=== PATIENT | male | born 1950 | race Caucasian/White ===

== ENCOUNTER → 2024-01-30 14:30 | Outpatient (REF) | payer MEDICARE, OTHER, SELFPAY | LOC: HWRAD 14:30 | PROVIDERS: ATTENDING PHYSICIAN Family Medicine | DX: M25.572 Pain in left ankle and joints of left foot (principal); G89.29 Other chronic pain | CPT/HCPCS: 71046; 73610 ==

== ENCOUNTER → 2025-03-03 10:03 | Outpatient (REF) | payer MEDICARE, OTHER, SELFPAY | LOC: PAVMRI 10:03 | PROVIDERS: ATTENDING PHYSICIAN Family Medicine | DX: M25.572 Pain in left ankle and joints of left foot (principal) | CPT/HCPCS: 73721 ==

== ENCOUNTER 2025-04-17 06:24 | Day surgery (SDC) | payer MEDICARE, OTHER, SELFPAY | END 2025-04-17 12:02 | disposition home or self-care (01) | LOC: GI 06:24 | PROVIDERS: ATTENDING PHYSICIAN Internal Medicine Gastroenterology; FAMILY PHYSICIAN Family Medicine | DX: Z12.11 Encounter for screening for malignant neoplasm of colon (principal); K64.8 Other hemorrhoids; K57.30 Diverticulosis of large intestine without perforation or abscess without bleeding; R12 Heartburn; K31.89 Other diseases of stomach and duodenum; Z86.0100 Personal history of colon polyps, unspecified | CPT/HCPCS: 43239; G0105; 88305; 88342 ==

== ENCOUNTER → 2025-05-02 11:56 | Outpatient (REF) | payer MEDICARE, OTHER, SELFPAY | LOC: RAD 11:56 | PROVIDERS: ATTENDING PHYSICIAN Internal Medicine Gastroenterology; FAMILY PHYSICIAN Family Medicine | DX: K59.00 Constipation, unspecified (principal); R10.13 Epigastric pain | CPT/HCPCS: 74177; Q9967 ==

== ENCOUNTER → 2025-05-12 12:04 | Outpatient (REF) | payer MEDICARE, OTHER, SELFPAY | LOC: HWRAD 12:04 | PROVIDERS: ATTENDING PHYSICIAN Family Medicine | DX: M54.9 Dorsalgia, unspecified (principal) | CPT/HCPCS: 72110 ==

== ENCOUNTER 2025-05-20 06:11 | Day surgery (SDC) | payer MEDICARE, OTHER, SELFPAY ==
[2025-05-20 13:15] VITALS: BP 161/92; BMI 29.8
[2025-05-20 13:40] VITALS: BMI 29.8
[2025-05-20 16:09] VITALS: BP 150/91
[2025-05-20 16:15] VITALS: BP 155/89
[2025-05-20 16:30] VITALS: BP 160/95
[2025-05-20 16:45] VITALS: BP 176/90
== END 2025-05-20 16:58 | disposition home or self-care (01) ==
LOC: SDS 06:11
PROVIDERS: ATTENDING PHYSICIAN Internal Medicine Gastroenterology
DX: R93.3 Abnormal findings on diagnostic imaging of other parts of digestive tract (principal); K86.89 Other specified diseases of pancreas; R59.0 Localized enlarged lymph nodes; C25.0 Malignant neoplasm of head of pancreas
CPT/HCPCS: 43238; 88173; 88305

== ENCOUNTER 2025-07-02 11:47 | Emergency (ER) | payer MEDICARE, OTHER, SELFPAY ==
[2025-07-02 12:05] VITALS: BP 139/90
[2025-07-02 15:53] VITALS: BP 134/77
[2025-07-02 16:21] VITALS: BMI 26.3
[2025-07-02] MEDS: NSS 1000 IV (16:52)
[2025-07-02] MEDS: TORADOL 15 MG IV (16:52)
[2025-07-02 17:22] LABS: Hematocrit 34.8 % (39.0-52.0); Hemoglobin 12.4 g/dL (13.0-18.0); Mean Corp Hgb Conc. 35.6 g/dL (33.0-37.0); Mean Corpuscular Volume 81.3 fL (80.0-94.0); Platelet Count 146 10^3/uL (130-400); Red Cell Dist. Width 11.8 % (11.5-14.5)
[2025-07-02 17:31] LABS: ALT (SGPT) 17 U/L (0-50); AST (SGOT) 18 U/L (17-59); Albumin 3.6 g/dl (3.5-5.0); Alkaline Phosphatase 101 U/L (38-126); Blood Urea Nitrogen 16 mg/dl (9-20); Estimated Creatinine Clearance 85 ml/min; Glucose 90 mg/dl (70-99); Potassium 3.9 mmol/L (3.5-5.1); Total Protein 6.2 g/dl (6.3-8.2); eGFR > 60.00
[2025-07-02 17:38] LABS: Nucleated Red Blood Cells % 0 % (-)
[2025-07-02 17:51] LABS: Calcium 8.6 mg/dl (8.4-10.2); Carbon Dioxide 19 mmol/L (22-30); Chloride 100 mmol/L (98-107); Sodium 130 mmol/L (135-145)
[2025-07-02 19:15] VITALS: BP 124/71
--- NOTE | 2025-07-02 19:21 | ED.GENMED ---
History of Present Illness
General
Chief Complaint: Abdominal Pain
Time Seen by Provider: 07/02/25 16:01
History of Present Illness
History of Present Illness:
74-year-old male presents to the emergency department for evaluation of severe abdominal and low back pain. The symptoms have been ongoing for several months and have been felt to be related to his known pancreatic cancer for which he recently
started chemotherapy. Has had difficulty tolerating p.o. food and fluids since starting chemo. Currently is on twice daily extended release morphine as well as breakthrough oxycodone but states every time he takes the oxycodone he has severe
stomach distress and nausea. Denies any vomiting or diarrhea. 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
Past History
Past History
ED Past Medical History: None
ED Past Surgical History: None
Review of Systems
Review of Systems
Allergies reviewed?: Yes
All Other Systems: ROS reviewed and negative except as documented in HPI and ROS
Phy Exam
Physical Exam
Physical Exam:
GEN: Well appearing, NAD, WDWN
HEENT: Oral mucosa moist, no scleral icterus
Cardiac: Regular rate
Lung: No respiratory distress, no tachypnea
Abdomen: Soft, grossly nontender to palpation
MSK: No gross deformity or injuries
Skin: Good color, no pallor or jaundice, no rashes
Neuro: AO x3, moves all extremities freely, bilateral lower extremity strength 5 out of 5 in all guerra
Psych: Calm, cooperative
Course
Orders/Labs/Results
Orders:
Orders
07/02/25 16:19
0.9% Sodium Chloride 1000 ml [Nss] 1,000 ml IV BOLUS
Ketorolac [Toradol] 15 mg IV NOW STA
07/02/25 17:06
Complete Blood Count/With Diff Urgent
Comprehensive Metabolic Panel Urgent
07/02/25 18:01
CT Abd/Pel (IV only)-DH only Urgent
Comment:
Reason For Exam: back/abd pain, known pancreatic CA
Abnormal Lab Results
07/02/25
17:06
WBC 21.8 H 10^3/uL
(4.8-10.8)
RBC 4.28 L 10^6/uL
(4.70-6.10)
Hgb 12.4 L g/dL
(13.0-18.0)
Hct 34.8 L %
(39.0-52.0)
MPV 11.5 H fL
(7.4-10.4)
Abs Immat Gran (auto) 0.3 H 10^3/uL
(0-0.05)
Absolute Neuts (auto) 17.8 H 10^3/uL
(1.4-6.5)
Absolute Monos (auto) 2.2 H 10^3/uL
(0.1-0.6)
Immature Gran % 1.2 H %
(0-0.5)
Neutrophils % 81.4 H %
(42.2-75.2)
Lymphocytes % 5.5 L %
(20.5-51.1)
Monocytes % 9.9 H %
(1.7-9.3)
Sodium 130 L mmol/L
(135-145)
Carbon Dioxide 19 L mmol/L
(22-30)
Total Protein 6.2 L g/dl
(6.3-8.2)
07/02/25 17:06
07/02/25 17:06
Vital Signs
Initial and Last Documented VS:
Initial Vital Signs
Temp Pulse Resp BP Pulse Ox
98.4 F 74 16 139/90 99
07/02/25 12:05 07/02/25 12:05 07/02/25 12:05 07/02/25 12:05 07/02/25 12:05
Last Documented Vital Signs
Temp Pulse Resp BP Pulse Ox
98.1 F 65 18 124/71 98
07/02/25 15:53 07/02/25 19:15 07/02/25 16:00 07/02/25 19:15 07/02/25 19:21
MDM/Problems Addressed
MDM/Problems Addressed:
Labs and imaging are reassuring. No progression of disease from comparison to prior images. 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
spinal issue however he has no neurologic findings concerning for spinal metastasis or neurologic involvement. Recommend he discuss an outpatient MRI for completeness given the degree of his pain. In the interim we will recommend NSAIDs as these
do not provide dramatic improvement in his symptoms as opposed to continued opioids, only to use long-acting opioids for daily control
*Pulse Oximetry
SaO2: 98
Oxygen Mode of Delivery: Room air
Patient hypoxic: no
*Critical Care Note
Total Time (30-74mins, 75-104mins- exclusive of procedures): Not Applicable
ED Attending Note
-
Portions of this chart may have been created with voice recognition software.� Occasional wrong word or��sound alike� substitutions may have occurred due to the inherent limitations of voice recognition software.
Discharge Plan
Departure
Patient Disposition: Home (Routine Discharge)
Date of Disposition: 07/02/25
Time of Disposition: 19:21
Patient with high blood pressure during this ER visit?: No
Discharge Problem:
Cancer related pain
Instructions: Chronic pain
Prescriptions:
New
celecoxib 200 mg capsule
200 mg PO BID Qty: 30 0RF
No Action
omeprazole 40 mg Capsule,Delayed Release(Dr/Ec)
40 mg PO DAILY
olmesartan 20 mg Tablet
20 mg PO QPM
rosuvastatin 10 mg Tablet
10 mg PO QPM
aspirin
81 mg PO QPM
simethicone
2 tab PO TID
Referrals:
Wojciech Mancera MD [Family Provider, [facility]]
Activity Restrictions/Additional Instructions:
Continue with your long-acting opiates and use the Celebrex in place of the short acting opiates for the time being. You may continue to use the short acting opiates if the pain increases. You should not take the anti-inflammatory for longer than
2 weeks. Please discuss with your primary doctor or oncologist whether an MRI of your mid and lower back would be beneficial
Interventions
Interventions:
*General Assessment Last Done: 07/02/25 16:21
*Neglect/Abuse Screening Last Done: 07/02/25 12:05
*ED COVID-19 Vaccine History Last Done: 07/02/25 16:21
*ED Influenza Vaccine History Last Done: 07/02/25 16:21
[facility] Fall Risk Assessment Tool Last Done: 07/02/25 17:05
*Risk Screen - Suicide (C-SSRS) Last Done: 07/02/25 12:05
CF-[id number]-Gmxnuehdwc Assessment Last Done: 07/02/25 16:58
Discharge Date and Time
Print Language: PRYDEINIG
--- NOTE | 2025-07-02 19:41 | VATNOTE ---
Called by ED to deaccess Rt. SL subq port and endorsed per protocol, pt. rita. well. phone representative aware.
== END 2025-07-02 19:48 | disposition home or self-care (01) ==
LOC: EMR 11:47
PROVIDERS: Physician Assistant; EMERGENCY PHYSICIAN Emergency Medicine; FAMILY PHYSICIAN Family Medicine
DX: G89.3 Neoplasm related pain (acute) (chronic) (principal); C25.9 Malignant neoplasm of pancreas, unspecified
CPT/HCPCS: 99284; 96374; 96361; 74177; 80053; 85025; Q9967